=== PATIENT | female | born 1985 | race Hispanic/Latino ===

== ENCOUNTER 2020-06-10 18:23 | Emergency (ER) | payer OTHER ==
[~2020-06-10] VITALS: Ht 154.9 cm; Wt 68.5 kg
[2020-06-10 19:38] VITALS: BP 134/82
== END 2020-06-10 19:41 | disposition home or self-care (01) ==
LOC: ER 18:37
DX: S93.401A Sprain of unspecified ligament of right ankle, initial encounter (principal); W05.1XXA Fall from non-moving nonmotorized scooter, initial encounter; Y93.I9 Activity, other involving external motion; Y92.488 Other paved roadways as the place of occurrence of the external cause
CPT/HCPCS: 99284